=== PATIENT | female | born 1955 | race Caucasian/White ===

== ENCOUNTER 2017-11-30 13:29 | Emergency (ER) | payer OTHER ==
[2017-11-30] MEDS: ACETAMINOPHEN 325 MG TAB PO (15:38)
== END 2017-11-30 17:41 | disposition home or self-care (01) ==
LOC: FTE 13:29
DX: S00.03XA Contusion of scalp, initial encounter (principal); R05 Cough; W01.0XXA Fall on same level from slipping, tripping and stumbling without subsequent striking against object, initial encounter; Y92.9 Unspecified place or not applicable
CPT/HCPCS: 70450; 71045; 72100; 72125; 99285-25

== ENCOUNTER 2019-03-06 13:12 | Emergency (ER) | payer OTHER ==
[2019-03-06] MEDS: DIPHTH/TET/ACEL PERTUSS (ADULT) 0.5 ML VIAL IM* (15:02)
== END 2019-03-06 15:12 | disposition home or self-care (01) ==
LOC: FTE 13:12
DX: Z48.02 Encounter for removal of sutures (principal); Z23 Encounter for immunization
CPT/HCPCS: 90471; 90715; 99281-25